=== PATIENT | female | born 1995 | race Caucasian/White ===

== ENCOUNTER 2016-10-13 08:26 | Emergency (ER) | payer OTHER ==
[~2016-10-13] VITALS: Ht 162.6 cm; Wt 68.0 kg
[2016-10-13] MEDS ORDERED: NORCO, ANEXSIA 5/325MG TABLET (HYDROcodone/ACETAMINOPHEN) PO ONE (09:15)
--- NOTE | 2016-10-13 09:47 | REP ---
RIGHT ELBOW, FOUR VIEWS: HISTORY: Trauma. There is no acute fracture or dislocation. The joint space is normal in appearance. Ossified densities are present medial and lateral to the joint space. These represent ligamentous or tendon calcifications. IMPRESSION: There is no acute fracture or dislocation. Signed by Ronen Alfaro MD 10/13/2016 10:07 A
[2016-10-13] MEDS ORDERED: VICO5TAB16 PO (09:50)
[2016-10-13] MEDS ORDERED: NAPR500T PO (09:51)
[2016-10-13 10:10] VITALS: BP 138/87
== END 2016-10-13 10:11 | disposition home or self-care (01) ==
LOC: M ED 09:17
DX: M25.521 Pain in right elbow (principal)

== ENCOUNTER 2016-12-16 19:24 | Emergency (ER) | payer OTHER ==
[~2016-12-16] VITALS: Ht 162.6 cm; Wt 72.7 kg
[~2016-12-16 19:24] MED LIST: NAPR500T PO; VICO5TAB16 PO
[2016-12-16] MEDS ORDERED: steroid eye drops (19:38)
[2016-12-16] MEDS ORDERED: NAPROXEN 250 MG TAB PO ONE (20:00)
[2016-12-16] MEDS ORDERED: NAPR500T PO (20:25)
[2016-12-16] MEDS ORDERED: AUGM875T28 PO (20:25)
[2016-12-16] MEDS ORDERED: AUGMENTIN 875 MG TAB PO ONE (20:30)
[2016-12-16] MEDS ORDERED: NORCO 5/325MG TABLET (BULK FOR ED) PO ONE (20:30)
[2016-12-16 20:35] VITALS: BP 131/83
--- NOTE | 2016-12-17 09:38 | REP ---
LEFT FINGERS: 12/16/2016. Clinical history: Trauma. Findings: Four view show the third and fourth fingers with some adjacent digits also observed. The phalanges show no fracture, avulsion. The IP joints were intact. MCP joints and visualized metacarpals also intact. Impression: 1. No visible fracture, avulsion, subluxation, foreign body or other acute finding. Signed by Kameron Jerez MD 12/17/2016 07:49 P
== END 2016-12-16 21:06 | disposition home or self-care (01) ==
LOC: M ED 19:24
DX: S67.193A Crushing injury of left middle finger, initial encounter (principal); S67.195A Crushing injury of left ring finger, initial encounter; S61.205A Unspecified open wound of left ring finger without damage to nail, initial encounter; Z72.0 Tobacco use; W23.1XXA Caught, crushed, jammed, or pinched between stationary objects, initial encounter; Y92.89 Other specified places as the place of occurrence of the external cause; Y93.89 Activity, other specified; Y99.1 Military activity

== ENCOUNTER 2017-06-11 04:54 | Inpatient (IN) | payer OTHER ==
[2017-06-11 05:55] LABS: HEMOGLOBIN 12.6 g/dl (12.0-16.0); MEAN CORPUSCULAR HEMOGLOBIN 29.6 pg (27.0-33.0); MEAN CORPUSCULAR HGB CONC 32.3 g/dl (32.0-36.5); MEAN CORPUSCULAR VOLUME 91.5 fl (80.0-96.0); PLATELET COUNT, AUTOMATED 338 10^3/uL (150-450); RED BLOOD COUNT 4.26 10^6/uL (4.00-5.40); RED CELL DISTRIBUTION WIDTH 13.6 % (11.5-14.5); WHITE BLOOD COUNT 7.4 10^3/uL (4.0-10.0)
[2017-06-11 05:59] LABS: AMPHETAMINES LEVEL URINE NEGATIVE (NEGATIVE); BARBITURATES URINE NEGATIVE (NEGATIVE); BENZODIAZEPINES URINE NEGATIVE (NEGATIVE); CANNABINOIDS URINE NEGATIVE (NEGATIVE); COCAINE METABOLITE URINE NEGATIVE (NEGATIVE); METHADONE URINE NEGATIVE (NEGATIVE); OPIATES URINE NEGATIVE (NEGATIVE); PHENCYCLIDINE URINE NEGATIVE (NEGATIVE)
[2017-06-11 06:10] LABS: CONTROL LINE HCG INT CTR LINE PRESENT; HCG, SERUM QUALITATIVE NEGATIVE (NEGATIVE)
[2017-06-11 06:30] LABS: ACETAMINOPHEN LEVEL < 2.0 UG/ML (10.0-30.0); ALBUMIN 4.3 GM/DL (3.2-5.2); ALBUMIN/GLOBULIN RATIO 1.19 (1.00-1.93); ALKALINE PHOSPHATASE 60 U/L (45-117); ALT/SGPT 15 U/L (12-78); ANION GAP 8 MEQ/L (8-16); AST/SGOT 17 U/L (7-37); BILIRUBIN,DIRECT < 0.1 MG/DL (0.0-0.2); BILIRUBIN,TOTAL 0.3 MG/DL (0.2-1.0); BLOOD UREA NITROGEN 8 MG/DL (7-18); CALCIUM LEVEL 8.7 MG/DL (8.5-10.1); CARBON DIOXIDE LEVEL 27 MEQ/L (21-32); CHLORIDE LEVEL 109 MEQ/L (98-107); CREATININE FOR GFR 0.77 MG/DL (0.55-1.02); ETHYL ALCOHOL (ETHANOL) 0.169 % (0.000-0.010); GLOMERULAR FILTRATION RATE > 60.0 (>60); GLUCOSE, FASTING 95 MG/DL (70-100); POTASSIUM SERUM 3.8 MEQ/L (3.5-5.1); SALICYLATE LEVEL < 1.7 MG/DL (5.0-30.0); SODIUM LEVEL 144 MEQ/L (136-145); TOTAL PROTEIN 7.9 GM/DL (6.4-8.2)
[2017-06-11] MEDS: ONDANSETRON 4 MG ORAL DISINTEGRATING TAB (S0181) PO (07:36)
[2017-06-11] MEDS: NICOTINE 7 MG/24 HR TRANSDERMAL TD (09:00)
[2017-06-11] MEDS ORDERED: MOM 30ML SUSPENSION UDC PO (12:15)
[2017-06-11] MEDS ORDERED: ACETAMINOPHEN TAB 650MG DOSE (2X325MG) PO (12:15)
[2017-06-11] MEDS ORDERED: MAALOX 30 ML SUSP *UDC PO (12:15)
[2017-06-11] MEDS ORDERED: traZODone 50 MG TAB PO (12:15)
[2017-06-11] MEDS ORDERED: POLYVINYL ALCOHOL OPHTH SOLN 15 ML(LIQUITEARS) OU (14:30)
[2017-06-11] MEDS: prednisoLONE ACET 1% OPHTH SUSP 5ML OU ×3 (16:00→21:00)
[2017-06-12] MEDS: NICOTINE 7 MG/24 HR TRANSDERMAL TD (08:22)
[2017-06-12] MEDS: prednisoLONE ACET 1% OPHTH SUSP 5ML OU ×3 (08:24→20:28)
[2017-06-12] MEDS: FLUoxetine 10 MG CAP PO (15:55)
[2017-06-13] MEDS: FLUoxetine 10 MG CAP PO (08:23)
[2017-06-13] MEDS: NICOTINE 7 MG/24 HR TRANSDERMAL TD (08:23)
[2017-06-13] MEDS: prednisoLONE ACET 1% OPHTH SUSP 5ML OU (08:23)
== END 2017-06-13 09:40 | disposition home or self-care (01) | DRG 885 ==
LOC: M ED 04:54 → M ED INP 12:12 → M PSY 13:00
DX: F33.1 Major depressive disorder, recurrent, moderate (principal); F17.210 Nicotine dependence, cigarettes, uncomplicated; F10.129 Alcohol abuse with intoxication, unspecified

== ENCOUNTER 2017-09-18 13:47 | Emergency (ER) | payer OTHER ==
[2017-09-18] MEDS: ONDANSETRON 4 MG ORAL DISINTEGRATING TAB (Q0162 PER 1MG) PO (17:19)
[2017-09-18] MEDS: KETOROLAC TROMETHAMINE 10 MG TAB PO (17:20)
[2017-09-18 17:23] LABS: BASO % 0.4 % (0.0-1.0); EOS # 0.2 10^3/uL (0.0-0.50); EOS % 1.7 % (0.0-3.0); HEMATOCRIT 39.1 % (36.0-47.0); HEMOGLOBIN 12.9 g/dl (12.0-15.5); IMMATURE GRANULOCYTE % 0.2 % (0-3.0); LYMPH # 2.6 10^3/uL (1.5-6.5); LYMPH % 27.2 % (24.0-44.0); MEAN CORPUSCULAR HEMOGLOBIN 30.1 pg (27.0-33.0); MEAN CORPUSCULAR VOLUME 91.1 fl (80.0-96.0); MONO # 0.9 10^3/uL (0.0-0.8); MONO % 9.6 % (0.0-5.0); NEUTROPHILS # 5.7 10^3/uL (1.8-7.7); NEUTROPHILS % 60.9 % (36.0-66.0); PLATELET COUNT, AUTOMATED 334 10^3/uL (150-450); RED BLOOD COUNT 4.29 10^6/uL (4.00-5.40); RED CELL DISTRIBUTION WIDTH 12.9 % (11.5-14.5); WHITE BLOOD COUNT 9.4 10^3/uL (4.0-10.0)
[2017-09-18 17:26] LABS: KETONE, URINE AUTO RFX NEGATIVE (NEGATIVE); LEUKOCYTE ESTERASE UR AUTO RFX NEGATIVE (NEGATIVE); NITRITE, URINE AUTO RFX NEGATIVE (NEGATIVE); RBC, URINE AUTO RFX 2 /HPF (0-3); SPECIFIC GRAVITY UR AUTO RFX 1.012 (1.002-1.035); SQUAM EPITHELIAL CELL UR AURFX 3 /HPF (0-6); WBC, URINE AUTO RFX 1 /HPF (0-3)
[2017-09-18 17:47] LABS: ANION GAP 5 MEQ/L (8-16); BLOOD UREA NITROGEN 14 MG/DL (7-18); CALCIUM LEVEL 9.2 MG/DL (8.5-10.1); CARBON DIOXIDE LEVEL 28 MEQ/L (21-32); CHLORIDE LEVEL 105 MEQ/L (98-107); CREATININE FOR GFR 0.92 MG/DL (0.55-1.30); GLOMERULAR FILTRATION RATE > 60.0 (>60); GLUCOSE, FASTING 90 MG/DL (70-100); MAGNESIUM LEVEL 2.6 MG/DL (1.8-2.4); POTASSIUM SERUM 4.4 MEQ/L (3.5-5.1); SODIUM LEVEL 138 MEQ/L (136-145)
== END 2017-09-18 18:33 | disposition home or self-care (01) ==
LOC: M ED 13:47
DX: N39.0 Urinary tract infection, site not specified (principal); F17.200 Nicotine dependence, unspecified, uncomplicated; Z79.899 Other long term (current) drug therapy
CPT/HCPCS: Q0162